=== PATIENT | female | born 1965 | race Caucasian/White ===

== ENCOUNTER 2021-05-12 09:44 | Outpatient (RCR) | payer BC, SELFPAY | END 2021-05-12 19:00 | disposition home or self-care (01) | LOC: PT 09:44 | PROVIDERS: PCP Internal Medicine; Referring Provider Internal Medicine; Visit Provider Internal Medicine | DX: U09.9 Post COVID-19 condition, unspecified (principal); M62.81 Muscle weakness (generalized); B33.0 Epidemic myalgia ==

== ENCOUNTER → 2022-06-26 | Outpatient (CLI) | payer MEDICAID, SELFPAY ==
--- NOTE | 2022-06-26 06:59 | EKG12_ITS ---
Test Reason : MEDICATION CHECK Blood Pressure : / mmHG Vent. Rate : 076 BPM Atrial Rate : 076 BPM P-R Int : 134 ms QRS Dur : 070 ms QT Int : 416 ms P-R-T Axes : 028 -12 003 degrees QTc Int : 468 ms Normal sinus rhythm Low voltage QRS (Precordial Leads) Poor R wave progression Confirmed by REMBERTO HERNANDES, NEREYDA ([id number]), deputy editor in chief KWAKU CHAPMAN ([id number]) on 06/27/2022 10:19:32 AM Referred By: RAE DE LA CRUZ Confirmed By:NEREYDA SR MD
== END | disposition home or self-care (01) ==
PROVIDERS: PCP Internal Medicine
DX: I45.81 Long QT syndrome (principal)
CPT/HCPCS: 93005

== ENCOUNTER → 2022-08-21 | Outpatient (CLI) | payer MEDICAID, SELFPAY ==
[2022-08-21 10:08] LABS: Mucous, Urine 0 SEEN /hpf (<or=2+); Red Blood Cells-Urine 0 SEEN /hpf (0-5)
[2022-08-21 10:53] LABS: Color, Urine Yellow (Yellow); Glucose, Dipstick Normal (Normal); Ketone-Dipstick Negative (Negative); Leukocyte Esterase-Dipstick 500 /ul (Negative); Nitrite-Dipstick Negative (Negative); Occult Blood-Urine Negative /ul (Negative); Protein-Dipstick Negative (Negative); Urine Bilirubin Dipstick Negative (Negative); Urine Clarity Sl. Cloudy (Clear); Urine Urobilinogen Normal (Normal); Urine pH 6.5 (5.0 - 8.0)
[2022-08-21 12:12] LABS: Bacteria 1+ /hpf (None Seen); Squamous Epithelial Cells - UA 0-5 SEEN /hpf (5-10); White Blood Cells 25-50 SEEN /hpf (0-5)
== END | disposition home or self-care (01) ==
LOC: LABSPEC 10:02
PROVIDERS: PCP Internal Medicine; Referring Provider Physician Assistant; Visit Provider Physician Assistant
DX: R39.9 Unspecified symptoms and signs involving the genitourinary system (principal)
CPT/HCPCS: 81001; 87086; 87088

== ENCOUNTER → 2022-10-05 | Outpatient (CLI) | payer MEDICAID, SELFPAY ==
--- NOTE | 2022-10-05 07:17 | US_ITS ---
HISTORY: UTI, HX OF STONES. TECHNIQUE: White scale and color doppler images were obtained of the kidneys. 65 images. COMPARISON: None. FINDINGS: RIGHT KIDNEY: 10 cm in length with a cortical thickness of 11 mm. Echogenic renal pyramids. No hydronephrosis. No gross renal mass demonstrated. LEFT KIDNEY: 10.1 cm in length with a cortical thickness of 11 mm. Echogenic renal pyramids. Mild pelviectasis. No gross renal mass demonstrated. URINARY BLADDER: Partially distended with a wall thickness of 4 mm. US/Kidney and Bladder IMPRESSION: Echogenic renal pyramids, suggesting medullary nephrocalcinosis. Mild left renal pelviectasis. Electronically Signed: Candace Yang MD at 9:04 EDT ,
== END | disposition home or self-care (01) ==
LOC: US 07:17
PROVIDERS: PCP Internal Medicine; Referring Provider Urology; Visit Provider Urology
DX: N39.0 Urinary tract infection, site not specified (principal); Z87.442 Personal history of urinary calculi
CPT/HCPCS: 76770

== ENCOUNTER → 2022-11-07 | Outpatient (CLI) | payer MEDICAID, SELFPAY ==
[2022-11-07 12:26] LABS: Absolute Lymphocyte Count 2.03 X10^3/uL (0.83-4.51); Absolute Neutrophil Count 3.2 X10^3/uL (2.0-7.7); Basophil# 0.06 X10^3/uL; Eosinophil# 0.31 X10^3/uL; Eosinophils% 5.1 % (0-5); Hematocrit 45.2 % (37-47); Hemoglobin 14.6 g/dL (12.0-15.0); Lymphocyte # 2.03 X10^3/ul (0.83-4.51); Lymphocyte % 33.6 % (19-41); Mean Corp Hgb Conc 32.3 g/dL (32-36); Mean Corpuscular Hgb 30.9 pg (27.0-32.0); Mean Corpuscular Volume 95.6 fL (81-99); Mean Platelet Vol. 11.4 fl (6.2-12.0); Monocyte# 0.44 X10^3/uL; Monocyte% 7.3 % (0-10); NRBC Flagged by Analyzer 0 % (0-5); Neutrophil % 52.8 % (47-70); Platelet Count 175 K/mm3 (150-450); RBC Distribution Width CV 13.2 % (11.6-14.6); RBC Distribution Width SD 47.4 fl (35.1-43.9); Red Blood Count 4.73 M/mm3 (4.2-5.4); White Blood Count 6.1 K/mm3 (4.4-11.0)
[2022-11-07 12:56] LABS: ALB/GLOB Ratio 0.8 RATIO (0.9-2.4); AST(SGOT) 44 U/L (15-37); Alanine Aminotransfer ALT/SGPT 47 U/L (13-56); Albumin, Serum 3.3 g/dL (3.2-5.0); Alkaline Phosphatase 123 U/L (45-117); Anion Gap 6 (5-15); BUN 12 mg/dL (7-18); BUN/Creat Ratio 13.1 RATIO (10-20); Chloride 104 mmol/L (98-107); Creatinine, Serum 0.91 mg/dL (0.55-1.02); EST Glomerular Filtration Rate 67 mL/min (>60); Est Glom Filt Rate - Afr Amer 81 mL/min (>60); Glucose 124 mg/dL (74-106); Potassium 3.6 mmol/L (3.5-5.1); Protein, Total 7.3 g/dL (6.4-8.2); Sodium Level 139 mmol/L (136-145); Thyroid Stim Hormone (TSH) 2.14 uIU/mL (0.358-3.74)
== END | disposition home or self-care (01) ==
LOC: BIMLAB 08:15
PROVIDERS: PCP Internal Medicine
DX: F33.2 Major depressive disorder, recurrent severe without psychotic features (principal)
CPT/HCPCS: 36415; 80053; 84443; 85025

== ENCOUNTER → 2023-04-03 | Outpatient (CLI) | payer MEDICAID, SELFPAY ==
[2023-04-03 12:34] LABS: Erythrocyte Sedimentation Rate 12 mm/hr (0-30)
[2023-04-03 12:38] LABS: Hematocrit 47.8 % (37-47); Hemoglobin 15.2 g/dL (12.0-15.0); Mean Corp Hgb Conc 31.8 g/dL (32-36); Mean Corpuscular Hgb 30.5 pg (27.0-32.0); Mean Platelet Vol. 11.1 fl (6.2-12.0); Platelet Count 181 K/mm3 (150-450); RBC Distribution Width CV 13.4 % (11.6-14.6); RBC Distribution Width SD 47.5 fl (35.1-43.9); Red Blood Count 4.98 M/mm3 (4.2-5.4); White Blood Count 8.6 K/mm3 (4.4-11.0)
[2023-04-03 12:59] LABS: Vitamin D,25 Hydroxy 23.3 ng/mL
[2023-04-03 13:15] LABS: ALB/GLOB Ratio 0.8 RATIO (0.9-2.4); AST(SGOT) 38 U/L (15-37); Alanine Aminotransfer ALT/SGPT 51 U/L (13-56); Albumin, Serum 3.4 g/dL (3.2-5.0); Alkaline Phosphatase 103 U/L (45-117); Anion Gap 7 (5-15); BUN 10 mg/dL (7-18); BUN/Creat Ratio 10.6 RATIO (10-20); CRP 9.91 mg/L (0.0-3.0); Calcium,Total 9.2 mg/dL (8.5-10.1); Chloride 101 mmol/L (98-107); Creatinine, Serum 0.95 mg/dL (0.55-1.02); EST Glomerular Filtration Rate 64 mL/min (>60); Est Glom Filt Rate - Afr Amer 78 mL/min (>60); Globulin 4.1 g/dL (2.2-4.2); Glucose 124 mg/dL (74-106); Potassium 3.7 mmol/L (3.5-5.1); Protein, Total 7.5 g/dL (6.4-8.2); Sodium Level 138 mmol/L (136-145); Thyroid Stim Hormone (TSH) 1.16 uIU/mL (0.358-3.74)
[2023-04-03 13:44] LABS: Hemoglobin A1c 6.1 % (3.8-5.6)
[2023-04-04 11:09] LABS: ANTINUCLEAR ANTIBODIES DIRECT Negative (Negative)
== END | disposition home or self-care (01) ==
LOC: BIMLAB 09:11
PROVIDERS: PCP Internal Medicine; Referring Provider Physician Assistant; Visit Provider Physician Assistant
DX: R53.83 Other fatigue (principal); R73.09 Other abnormal glucose
CPT/HCPCS: 36415; 80053; 82306; 83036; 84443; 85027; 85652; 86038; 86140; 86225; 86235

== ENCOUNTER → 2023-06-27 | Outpatient (CLI) | payer OTHER, SELFPAY ==
[2023-06-27 10:06] LABS: Red Blood Cells-Urine 0 SEEN /hpf (0-5)
[2023-06-27 12:40] LABS: Color, Urine Yellow (Yellow); Glucose, Dipstick Normal (Normal); Ketone-Dipstick 5 mg/dl (Negative); Leukocyte Esterase-Dipstick 25 /ul (Negative); Nitrite-Dipstick Negative (Negative); Occult Blood-Urine 25 /ul (Negative); Protein-Dipstick 15 mg/dl (Negative); Specific Gravity, Urine 1.025 (1.002-1.030); Urine Clarity Clear (Clear); Urine Urobilinogen Normal (Normal)
[2023-06-27 12:44] LABS: Urine Bilirubin Dipstick 1 mg/dL (Negative)
[2023-06-27 13:05] LABS: Bacteria 1+ /hpf (None Seen); Mucous, Urine 1+ /hpf (<or=2+); Squamous Epithelial Cells - UA 0-5 SEEN /hpf (5-10); White Blood Cells 0-5 SEEN /hpf (0-5)
== END | disposition home or self-care (01) ==
LOC: LABSPEC 10:00
PROVIDERS: PCP Internal Medicine; Visit Provider Internal Medicine
DX: R30.0 Dysuria (principal)
CPT/HCPCS: 81001

== ENCOUNTER → 2023-07-01 | Outpatient (CLI) | payer OTHER, SELFPAY | END | disposition home or self-care (01) | LOC: LABSPEC 13:47 | PROVIDERS: PCP Internal Medicine; Referring Provider Internal Medicine; Visit Provider Internal Medicine | DX: R30.0 Dysuria (principal) | CPT/HCPCS: 87077; 87086; 87088; 87186 ==

== ENCOUNTER → 2023-08-02 | Outpatient (CLI) | payer OTHER, SELFPAY | END | disposition home or self-care (01) | LOC: LABSPEC 12:18 | PROVIDERS: PCP Internal Medicine; Referring Provider Physician Assistant Surgical; Visit Provider Physician Assistant Surgical | DX: N39.0 Urinary tract infection, site not specified (principal) | CPT/HCPCS: 87077; 87086; 87088; 87186 ==

== ENCOUNTER → 2023-10-09 | Outpatient (CLI) | payer OTHER, SELFPAY | END | disposition home or self-care (01) | LOC: LABSPEC 12:54 | PROVIDERS: PCP Internal Medicine; Referring Provider Physician Assistant; Visit Provider Physician Assistant | DX: N39.0 Urinary tract infection, site not specified (principal) | CPT/HCPCS: 87077; 87086; 87088; 87186 ==

== ENCOUNTER 2023-11-22 07:25 | Day surgery (SDC) | payer MEDICARE, SELFPAY ==
[2023-11-22] VITALS (11 sets, daily range): BP systolic 80–153; BP diastolic 62–94; PULSE 68–96; RESP 16–22; TEMP 36.4–36.9; O2SAT 93–98; BMI 37.2
--- NOTE | 2023-11-22 07:34 | PCM.PRE.AN2 ---
ASA Classification* ASA Classification ASA Classification: 3 Assessment & Plan Anesthesia* Anesthesia Assessment Anesthesia Assessment: Discussed sedation and/or anesthesia options, risks, benefits, and alternatives with patient/parents/legal guardian/POA. Questions invited. The patient/parents/legal guardian/POA seems to understand and agrees to proceed with anesthesia plan. Reviewed the physical assessment, medical history, allergy history and patient home medications list prior to surgery/procedure/anesthetic and documented any changes. Performed airway and anesthesia risk assessments. Anesthesia Type Anesthesia Type: MAC Anesthesia Focused Assessment* Airway Assessment Mouth opens: >3 cm Mallampati Score: II Focused Labs Anesthesia Preop lab: CBC WBC 8.6 K/mm3 (4.4-11.0) 04/03/23 09:10 RBC 4.98 M/mm3 (4.2-5.4) 04/03/23 09:10 Hgb 15.2 g/dL (12.0-15.0) H 04/03/23 09:10 Hct 47.8 % (37-47) H 04/03/23 09:10 Plt Count 181 K/mm3 (150-450) 04/03/23 09:10 CHEMISTRY Potassium 3.7 mmol/L (3.5-5.1) 04/03/23 09:10 Sodium 138 mmol/L (136-145) 04/03/23 09:10 BUN 10 mg/dL (7-18) 04/03/23 09:10 Creatinine 0.95 mg/dL (0.55-1.02) 04/03/23 09:10 Glucose 124 mg/dL (74-106) H 04/03/23 09:10 TSH 1.16 uIU/mL (0.358-3.74) 04/03/23 09:10 COAG Pre-Assessment Diagnosis/Proposed Procedure Planned Operative Procedure(s): CSCOPE OA Anesthesia History 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 When Was Last Pacemaker Check QUESTION #4 FULL TEXT: You/Your Family Experience fever (hyperthermia) with Anesthesia Last Oral Intake Last Oral intake: Last Oral Intake NPO since Meds taken in AM with sips of water? Meds patient instructed to take am of surgery PONV PONV - simulation software engineer: PONV - simulation software engineer Female Yes 11/20/23 10:33 HX of Motion Sickness No 11/20/23 10:33 HX of N/V After Surgery Yes 11/20/23 10:33 Non-Smoker Yes 11/20/23 10:33 Duration of Surgery greater No 11/20/23 10:33 than 60 minutes Number of Risk Factors 3 11/20/23 10:33 PONV Score Moderate Risk 11/20/23 10:33 Height & Weight Height & Weight: Anesthesia: Height & Weight Height 5 ft 1 in 11/06/23 08:59 Respiratory Assessment Respiratory Assessment - simulation software engineer: Respiratory Tract Infection Hx - simulation software engineer Hx Respiratory Tract Infection No 11/20/23 10:33 STOP Sleep Apnea STOP Sleep Apnea - simulation software engineer: STOP Sleep Apnea - simulation software engineer Hx Hypertension Yes: NO MEDS FOR 4 MONTHS 11/20/23 10:33 Hx Sleep Apnea No 11/20/23 10:33 CPAP BIPAP Do you snore loudly (louder No 11/20/23 10:33 than talking or can be heard Do you often feel tired/ Yes 11/20/23 10:33 fatigued/ sleepy during daytime? Has anyone observed you stop No 11/20/23 10:33 breathing during sleep? STOP Results Positive 11/20/23 10:33 QUESTION #5 FULL TEXT : Do you snore loudly (louder than talking or can be heard through closed doors)? 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 Specify any problems Hx of Preganancy in last 3 No 11/20/23 10:33 Months Nurse Filling Out Transfusion DSCHRIBER 11/20/23 10:33 & Questions: Date: 11/20/23 11/20/23 10:33 Time: 10:35 11/20/23 10:33 Patient unable to answer at this time (ie. confused, unrespo /Reproduction History /Reproductive History - simulation software engineer: /Reproductive Hx- simulation software engineer Hx Now No 11/20/23 10:33 Gestational Age (in weeks): EDC: Hx Hx Para Hx Section SAB No 11/20/23 10:33 Active Medications Active Medications: Current Medications Generic Name Dose Route Start Last Admin Trade Name Freq PRN Reason Stop Dose Admin Lactated Ringer's 1,000 mls @ 15 mls/hr 11/22/23 07:45 IV .Q48H CHANCE PFSH Medical History Wears glasses Post-menopausal Depression Anxiety Alcohol use Arthritis Fatty liver Restless legs Syncope History of hiatal hernia Non-smoker Shortness of breath on exertion History of pain when walking History of edema Cardiology follow-up encounter History of echocardiogram History of stress test History of irregular heartbeat Hx of colonic polyps Left ankle pain Urinary tract infection Cognitive impairment Chronic fatigue syndrome Long COVID Venous insufficiency GERD (gastroesophageal reflux disease) Pancreatitis Hypertension History of frequent headaches Anxiety and depression Ankle fracture, left Asthma History of cyst of breast Home Medications ?Medication ?Instructions ?Recorded ?Last Taken ?Type albuterol sulfate 90 mcg/actuation 2 puff inhalation Q4H PRN 07/16/22 Unknown History aerosol inhaler shortness of breath or wheezing venlafaxine 25 mg tablet 25 mg PO BID 07/16/22 Unknown History fluticasone furoate 200 1 inh inhalation DAILY #60 ea 11/26/22 Unknown Rx mcg-vilanterol 25 mcg/dose inhalation powder alprazolam 0.5 mg tablet (Xanax) 0.5 mg PO QHS 12/18/22 Unknown History gabapentin 100 mg capsule 100 mg PO QHS PRN pain (scale 12/18/22 Unknown History score 1-3) trimethoprim 100 mg tablet 100 mg PO QHS 11/06/23 Unknown History pantoprazole 40 mg tablet,delayed 40 mg PO QHS 11/20/23 Unknown History release Allergy/AdvReac Type Severity Reaction Status Date / Time ciprofloxacin (From Cipro) Allergy Severe other Verified 11/20/23 10:31 codeine Allergy Mild hives Verified 11/20/23 10:31 Sulfa (Sulfonamide Allergy Mild Hives Verified 11/20/23 10:31 Antibiotics) Family History Mother Anxiety Asthma Brother Anxiety Father Non-Hodgkin lymphoma Aunt Breast cancer Surgical History Hx of colonoscopy History of cholecystectomy History of cataract extraction History of sacrocolpopexy History of hysterectomy H/O sinus surgery H/O repair of rotator cuff Social History household members: spouse current occupational status: disabled Smoking Status: Never smoker Electronic Cigarette Use: not used alcohol intake: current alcohol intake frequency: holidays/special occasions only Alcohol type: wine substance use type: does not use what type of physical activity do you participate in: none do you feel safe at home: Yes Review of Systems (Anesthesia) ROS Narrative System reviewed and no additional complaints, except as documented.
[2023-11-22] MEDS: Lactated Ringers 1,000 ML 15 ML IV ×2 (07:42→09:52)
--- NOTE | 2023-11-22 08:28 | HP.PCM_ITS ---
HPI - General General Date of Service: 11/22/23 Chief Complaint: Colon cancer screening with history of polyp HPI Narrative ANA TOM, is a 58 F who presents screening colonoscopy. She confirms her preappointment questionnaire that she has not experienced any change in her bowel habits-and particularly denies any notice of blood. She does have a history of multiple prior endoscopies?including one 4 to 5 years ago performed in [place] where she was for the first time found to have a tubular adenoma. She also denies any family history of GI illness to include diverticulitis, inflammatory bowel disease, or colon cancer. Lastly she confirms that her prep was completed successfully and that her output is now clear. [facility] Medical History Wears glasses Post-menopausal Depression Anxiety Alcohol use Arthritis Fatty liver Restless legs Syncope History of hiatal hernia Non-smoker Shortness of breath on exertion History of pain when walking History of edema Cardiology follow-up encounter History of echocardiogram History of stress test History of irregular heartbeat Hx of colonic polyps Left ankle pain Urinary tract infection Cognitive impairment Chronic fatigue syndrome Long COVID Venous insufficiency GERD (gastroesophageal reflux disease) Pancreatitis Hypertension History of frequent headaches Anxiety and depression Ankle fracture, left Asthma History of cyst of breast Home Medications ?Medication ?Instructions ?Recorded ?Last Taken ?Type albuterol sulfate 90 mcg/actuation 2 puff inhalation Q4H PRN 07/16/22 Unknown History aerosol inhaler shortness of breath or wheezing venlafaxine 25 mg tablet 25 mg PO BID 07/16/22 Unknown History fluticasone furoate 200 1 inh inhalation DAILY #60 ea 11/26/22 Unknown Rx mcg-vilanterol 25 mcg/dose inhalation powder alprazolam 0.5 mg tablet (Xanax) 0.5 mg PO QHS 12/18/22 Unknown History gabapentin 100 mg capsule 100 mg PO QHS PRN pain (scale 12/18/22 Unknown History score 1-3) trimethoprim 100 mg tablet 100 mg PO QHS 11/06/23 Unknown History pantoprazole 40 mg tablet,delayed 40 mg PO QHS 11/20/23 Unknown History release Allergy/AdvReac Type Severity Reaction Status Date / Time ciprofloxacin (From Cipro) Allergy Severe other Verified 11/22/23 07:37 codeine Allergy Mild hives Verified 11/22/23 07:37 Sulfa (Sulfonamide Allergy Mild Hives Verified 11/22/23 07:37 Antibiotics) Family History Mother Anxiety Asthma Brother Anxiety Father Non-Hodgkin lymphoma Aunt Breast cancer Surgical History Hx of colonoscopy History of cholecystectomy History of cataract extraction History of sacrocolpopexy History of hysterectomy H/O sinus surgery H/O repair of rotator cuff Social History household members: spouse current occupational status: disabled Smoking Status: Never smoker Electronic Cigarette Use: not used alcohol intake: current alcohol intake frequency: holidays/special occasions only Alcohol type: wine substance use type: does not use what type of physical activity do you participate in: none do you feel safe at home: Yes Past Medical/Surgical History Planned Operation Planned Operative Procedure(s): CSCOPE OA Previous Hospitalizations/Surgeries HX Hospitalizations: No Any Problems With Anesthesia: Yes (N,V) You/Your Family Experience Fever (Hyperthermia) With Anes: No Cholinesterase deficiency: No Cardiovascular Hx Hypertension: Yes (NO MEDS FOR 4 MONTHS) Respiratory Hx Sleep Apnea: No Hx Respiratory Tract Infection/Cold (presently): No Do You Snore Loudly (louder than talking or can be heard): No Do You Often Feel Tired/ Fatigued/ Sleepy Dring Daytime?: Yes Has Anyone Observed You Stop Breathing During Sleep?: No Result (for STOP score): Positive Smoking Status: Never smoker Neurological Does patient have nerve stimulator: No Reproduction : No Miscellaneous Recent Exposure to Contagious Disease: No Allergies ciprofloxacin (From Cipro) Allergy (Severe, Verified 11/22/23 07:37) other QT prolongation codeine Allergy (Mild, Verified 11/22/23 07:37) hives Sulfa (Sulfonamide Antibiotics) Allergy (Mild, Verified 11/22/23 07:37) Hives Discharge Is Pt Admitted From a [facility], or a Senior Living: No After D/C, Where Do you Plan to Go: Return Home Vital Signs Vital Signs Vital Signs: 11/22/23 07:38 11/22/23 07:38 Temperature 98.5 F Temperature Source Temporal Pulse Rate 96 Respiratory Rate 16 Respiratory Pattern Normal Blood Pressure Source Monitor Blood Pressure Position Semi-Fowlers Blood Pressure Location Left Forearm Pulse Ox 98 Oxygen Delivery Method Room Air Weight Weight: 197 lb Body Mass Index (BMI) 37.2 Physical Exam Const alert, oriented x3 and no apparent distress Resp normal respiratory effort GI GI Narrative: Obese, soft, nondistended, nontender to palpation x 4 quadrants Assessment & Plan Assessment/Plan (1) History of adenomatous polyp of colon: PLAN: Patient is a 58-year-old female who presents for colonoscopy after she was found to have a colonic tubular adenoma 4 to 5 years ago during screening colonoscopy. She denies any present complaints other GI habits. Her abdominal exam is benign. She has completed a prep in anticipation of today's procedure. Procedure and post procedure reporting expectations were reviewed and patient denies any further questions. Proceed to endoscopy suite for planned colonoscopy. Surgery Risks - Colonoscopy Risks Include but are not Limited To: Risks include but are not limited to: Bleeding, perforation requiring further surgery, inability to complete colonoscopy requiring barium enema.
--- NOTE | 2023-11-22 08:30 | COLBX_PTH ---
PATIENT: ANA TOM LOC: EN U#:[id number] AGE/SX: 58/F ROOM: RE11/22/[address]: Dr. Antonio Roa MD : 1965 BED: DIS: 11/22/2023 SPEC #: [id number] RECD: 11/22/23 10:50 STATUS: LILIANE CLARK #: [id number] MARINA: 11/22/23 08:[address]: Antonio Roa DEPT: SURGICAL PATHOLOGY RECD BY: Arianna Villafuerte ENTERED: 11/22/23 11:19 SP TYPE: COLON BX OTHR DR: Dr. Court Mcdermott MD Tissues: Rectum, NOS Procedures: Surgery Specimen Level IV HEADER OPERATION: Colonoscopy with biopsy PRE-OP DIAGNOSIS: History of adenomatous polyp of colon TISSUE SUBMITTED: Distal rectal polyp biopsy MICROSCOPIC DIAGNOSIS Distal rectal polyp, biopsy: Hyperplastic polyp. AM/mr 11/25/2023 MICROSCOPIC DESCRIPTION Slides are reviewed. GROSS DESCRIPTION Received in fixative is one container labeled with the patient's name and designated Distal rectal polyp biopsy. The specimen consists of two irregular fragments of light reyes soft tissue that measures 0.4 x 0.2 x 0.1 cm. The specimen is totally submitted in one cassette. NITZA/ 11/22/2023 TC:5 CPT:34176
--- NOTE | 2023-11-22 09:23 | OP.COLON_ITS ---
Patient Name: Jenny Cardoza Procedure Date: 11/22/2023 8:21 AM Date of : 1965 Age: 58 Procedure: Colonoscopy Indications: Surveillance: Personal history of adenomatous polyps on last colonoscopy 5 years ago Providers: Antonio Roa MD Medicines: See the Anesthesia note for documentation of the administered medications Patient Profile: Refer to note in patient chart for documentation of history and physical. Last Colonoscopy: more than 3 years ago. Complications: No immediate complications. Estimated blood loss: Minimal. Procedure: Pre-Anesthesia Assessment: - The heart rate, respiratory rate, oxygen saturations, blood pressure, adequacy of pulmonary ventilation, and response to care were monitored throughout the procedure. After I obtained informed consent, the scope was passed under direct vision. Throughout the procedure, the patient's blood pressure, pulse, and oxygen saturations were monitored continuously. The Colonoscope was introduced through the anus and advanced to the cecum, identified by the appendiceal orifice, ileocecal valve and palpation. The colonoscopy was somewhat difficult due to intractable coughing. Successful completion of the procedure was aided by increasing the dose of sedation medication. The patient tolerated the procedure fairly well. The quality of the bowel preparation was adequate to identify polyps greater than 5 mm in size. Scope In: 8:44:56 AM Scope Withdrawal Time 0 hours 19 minutes 2 seconds Scope Out: 9:12:27 AM Total Procedure Duration Time 0 hours 27 minutes 31 seconds Findings: Hemorrhoids were found on perianal exam. The perianal exam findings include hypertrophied anal papilla(e). Multiple small localized angiodysplastic lesions without bleeding were found in the ascending colon. No biopsies or other specimens were collected for this exam. A 3 mm polyp was found in the proximal rectum. The polyp was sessile. Biopsies were taken with a cold forceps for histology. Estimated blood loss was minimal. Internal hemorrhoids were found during retroflexion. The hemorrhoids were large and Grade II (internal hemorrhoids that prolapse but reduce spontaneously). No biopsies or other specimens were collected for this exam. Impression: - Hemorrhoids found on perianal exam. - Hypertrophied anal papilla(e) found on perianal exam. - Multiple non-bleeding colonic angiodysplastic lesions. No specimens collected. - One 3 mm polyp in the proximal rectum. Biopsied. - Internal hemorrhoids. No specimens collected. Recommendation: - Discharge patient to home (via wheelchair). - High fiber diet today. - No aspirin, ibuprofen, naproxen, or other non-steroidal anti-inflammatory drugs for 2 days after biopsy. - Await pathology results. - Repeat colonoscopy date to be determined after pending pathology results are reviewed for surveillance based on pathology results. - Telephone my office for pathology results in 1 week. Procedure Code(s): --- Professional --- 02584, Colonoscopy, flexible; with biopsy, single or multiple Diagnosis Code(s): --- Professional --- Z86.010, Personal history of colonic polyps K62.89, Other specified diseases of anus and rectum K55.20, Angiodysplasia of colon without hemorrhage D12.8, Benign neoplasm of rectum K64.1, Second degree hemorrhoids CPT copyright 2021 [employer]. All rights reserved. The codes documented in this report are preliminary and upon trailers and motor homes salesperson review may be revised to meet current compliance requirements. Antonio Roa MD 11/22/2023 9:23:18 AM This report has been signed electronically. Number of Addenda: 0 Note Initiated On: 11/22/2023 8:21 AM
--- NOTE | 2023-11-22 09:24 | OP.CCLET_ITS ---
11/22/2023 Court Mcdermott Md Re : Colonoscopy procedure for Jenny Cardoza Dear Baldemar This procedure was performed on Wednesday, November 22, 2023. My impressions and recommendations are as follows: Impressions : - Hemorrhoids found on perianal exam. - Hypertrophied anal papilla(e) found on perianal exam. - Multiple non-bleeding colonic angiodysplastic lesions. No specimens collected. - One 3 mm polyp in the proximal rectum. Biopsied. - Internal hemorrhoids. No specimens collected. Recommendations : - Discharge patient to home (via wheelchair). - High fiber diet today. - No aspirin, ibuprofen, naproxen, or other non-steroidal anti-inflammatory drugs for 2 days after biopsy. - Await pathology results. - Repeat colonoscopy date to be determined after pending pathology results are reviewed for surveillance based on pathology results. - Telephone my office for pathology results in 1 week. My findings are described in the full procedure note, which is enclosed. If I can be of further assistance, please feel free to contact me at Doctor phone number(s): , Work: . Sincerely, Antonio Roa MD 11/22/2023 9:23:18 AM This report has been signed electronically.
--- NOTE | 2023-11-22 09:26 | PCM.POST.ANE ---
Anesthesia: Postop Eval I Current Vital Signs Temperature: 97.5 F Pulse Rate: 92 Blood Pressure: 112/83 Respiratory Rate: 22 Pulse Ox: 97 Oxygen Delivery Method: Nasal Cannula Oxygen Flow Rate (L/min): 4 Assessment Airway patent: Yes Spontaneous unlabored respirations: Yes Mental status: Awake nausea: No Vomiting: No Anesthesia Complication: Yes Anesthesia Complication Comment:: O2 desat d/t profuse coughing Fluid Hydration Crystalloid volume administer (ml): 800 Total IV fluid infused: 800 Progress Note Anesthesia document: Postop Eval 1 completed: Yes
[2023-11-22] MEDS: Ipratropium/Albuterol Sulfate 3 ML AMPUL.NEB INHALATION (10:24)
--- NOTE | 2023-11-22 12:20 | PCM.POSTANE2 ---
Anesthesia Postop Eval I Sum Postop Eval Completion status Anesthesia document: Postop Eval 1 completed: Yes Anesthesia Postop Eval I Summary Anesthesia Postop Eval I Summary: Anesthesia Postop Eval I: Assessment Summary Airway patent Yes 11/22/23 09:27 [email or web address] Spontaneous unlabored Yes 11/22/23 09:27 [email or web address] respirations Mental status Awake 11/22/23 09:27 [email or web address] nausea No 11/22/23 09:27 [email or web address] Vomiting No 11/22/23 09:27 [email or web address] Anesthesia Postop Eval I: Fluid Summary Crystalloid volume administer 800 11/22/23 09:27 [email or web address] (ml) Colloids volume administered ( ml) Blood Product volume administered (ml) Total IV fluid infused 800 11/22/23 09:27 [email or web address] Anesthesia Postop Eval I: Summary Notes Anesthesia Complication Yes 11/22/23 09:27 [email or web address] Anesthesia Complication O2 desat d/t 11/22/23 09:27 [email or web address] Comment: profuse coughing Post-operative progress note Anesthesia: Postop Eval II Evaluation Mental status: Awake and Calm Pain Level: 0 nausea: No Vomiting: No Complications Anesthesia Complication: No
== END 2023-11-22 10:49 | disposition home or self-care (01) ==
LOC: EN 07:25 → AC 07:26
PROVIDERS: PCP Internal Medicine; Referring Provider Internal Medicine; Visit Provider Surgery
PROC: 0DJD8ZZ Inspection of Lower Intestinal Tract, Via Natural or Artificial Opening Endoscopic (ICD-10-PCS; CPT 45378; principal; 2023-11-22 08:25)
DX: Z12.11 Encounter for screening for malignant neoplasm of colon (principal); K64.1 Second degree hemorrhoids; K62.1 Rectal polyp; J45.909 Unspecified asthma, uncomplicated; F41.9 Anxiety disorder, unspecified; F32.A Depression, unspecified; G47.33 Obstructive sleep apnea (adult) (pediatric); K21.9 Gastro-esophageal reflux disease without esophagitis; K62.89 Other specified diseases of anus and rectum; Z79.51 Long term (current) use of inhaled steroids; Z79.899 Other long term (current) drug therapy; Z86.16 Personal history of COVID-19; Z86.010 Personal history of colon polyps
CPT/HCPCS: 45380; 88305; 94640; J7120; J2405

== ENCOUNTER → 2023-11-23 | Outpatient (CLI) | payer MEDICARE, SELFPAY ==
--- NOTE | 2023-11-23 08:14 | MRI_ITS ---
EXAM: MR LEFT LOWER EXTREMITY WITHOUT INTRAVENOUS CONTRAST, TIBIA AND FIBULA CLINICAL INDICATION: pain and swelling -- Attention distal medial tibia TECHNIQUE: Multiplanar and multisequence MR images of the left tibia and fibula without intravenous contrast. COMPARISON: No relevant prior studies available. FINDINGS: Nonspecific subcutaneous edema at the left anteromedial distal lower extremity consider sequela of trauma or potentially cellulitis. No marrow signal alterations. Visualized tendons are intact. No soft tissue masses. MRI/Lower Ext/No Jt/w/o IMPRESSION: Nonspecific subcutaneous edema at the left anteromedial distal lower extremity consider sequela of trauma or potentially cellulitis. Electronically Signed: Sen Mauricio MD at 4:27 EDT ,
== END | disposition home or self-care (01) ==
LOC: MRI 07:55
PROVIDERS: PCP Internal Medicine; Referring Provider Physician Assistant; Visit Provider Physician Assistant
DX: M79.605 Pain in left leg (principal); S80.12XA Contusion of left lower leg, initial encounter; X58.XXXA Exposure to other specified factors, initial encounter; M79.89 Other specified soft tissue disorders
CPT/HCPCS: 73718

== ENCOUNTER → 2023-12-13 | Outpatient (CLI) | payer MEDICARE, SELFPAY ==
--- NOTE | 2023-12-13 10:24 | BI_ITS ---
MAMMOGRAPHY - BILATERAL SCREENING REASON FOR EXAM: Female, 58 years old. Routine annual screening examination. PERTINENT HISTORY: Remote left excisional breast biopsies. TECHNIQUE: Digital bilateral breast trang (3D mammographic acquisition) in the CC and MLO projections. 2-D mediolateral oblique (MLO) and craniocaudad (CC) views of both breasts were obtained. CAD: Full Field Digital Mammography with Computer Added Detection was performed. COMPARISON: Comparison is made with prior outside examination of April 10, 2022. FINDINGS: Breast Composition: The breasts are heterogeneously dense, which may obscure small masses. There are no dominant masses or suspicious calcifications. No other significant abnormalities are identified. There has been no significant change since the prior study. BI/SCRN MAMM (CAD)W/TRANG BILAT IMPRESSION: Stable bilateral screening mammogram. Yearly follow-up mammogram recommended. (A) ASSESSMENT CATEGORY: BIRADS Category 1: Negative. A letter regarding these results will be sent to the patient by the facility within 30 days. Approximately 10% of breast cancers are not detected by mammography. A normal mammogram should not delay biopsy of a clinically suspicious abnormality. [id number] Electronically Signed: Bhavik Matute MD at 7:33 EDT ,
== END | disposition home or self-care (01) ==
LOC: OPBI 10:23
PROVIDERS: PCP Internal Medicine; Referring Provider Physician Assistant; Visit Provider Physician Assistant
DX: Z12.31 Encounter for screening mammogram for malignant neoplasm of breast (principal)
CPT/HCPCS: 77063; 77067

== ENCOUNTER → 2025-02-09 | Outpatient (CLI) | payer MEDICARE, SELFPAY ==
--- NOTE | 2025-02-09 16:46 | BI_ITS ---
EXAM: SCRN MAMM (CAD)W/TRANG BILAT DATE: 02/09/2025 CLINICAL HISTORY: F, Age 60 y/o , SCREENING Aunt with breast cancer. Remote left excisional breast biopsies. TECHNIQUE: Procedure Code: [id number] Modality: MG Procedure: SCRN MAMM (CAD)W/TRANG BILAT COMPARISON: Prior exam(s) dated December 13, 2023.. FINDINGS: TISSUE DENSITY: The breasts are heterogeneously dense, which may obscure small masses. Bilateral Breast Mammographic Findings: No significant masses, calcifications or other abnormalities are identified. No suspicious masses, areas of developing architectural distortion, or suspicious calcifications. There has been no significant interval change. BI/SCRN MAMM (CAD)W/TRANG BILAT IMPRESSION: Stable bilateral screening mammogram. OVERALL FINAL ASSESSMENT BI-RADS 1: NEGATIVE. RECOMMENDATION: Routine annual follow-up in 1 Year Additional Recommendation none A letter with findings and recommendations will be mailed to the patient. Reading Location: [place] [id number]
== END | disposition home or self-care (01) ==
LOC: OPBI 02-10 06:52
PROVIDERS: PCP Nurse Practitioner; Referring Provider Internal Medicine; Visit Provider Internal Medicine
DX: Z12.31 Encounter for screening mammogram for malignant neoplasm of breast (principal)
CPT/HCPCS: 77063; 77067

== ENCOUNTER → 2025-02-22 | Outpatient (CLI) | payer MEDICARE, SELFPAY ==
[2025-02-22 13:04] LABS: Vitamin D,25 Hydroxy 23.6 ng/mL (30-100)
== END | disposition home or self-care (01) ==
LOC: MTLAB 09:55
PROVIDERS: PCP Nurse Practitioner; Referring Provider Nurse Practitioner Family; Visit Provider Nurse Practitioner Family
DX: E55.9 Vitamin D deficiency, unspecified (principal); E11.65 Type 2 diabetes mellitus with hyperglycemia; R53.83 Other fatigue
CPT/HCPCS: 36415; 82306; 84443; 86376

== ENCOUNTER → 2025-03-02 | Outpatient (CLI) | payer MEDICARE, SELFPAY ==
--- NOTE | 2025-03-02 16:17 | BD_ITS ---
PROCEDURE: BD/Dexa Bone Density Study
== END | disposition home or self-care (01) ==
LOC: OPBD 16:13
PROVIDERS: PCP Nurse Practitioner; Referring Provider Nurse Practitioner Family; Visit Provider Nurse Practitioner Family
DX: Z78.0 Asymptomatic menopausal state (principal)
CPT/HCPCS: 77080

== ENCOUNTER 2025-03-05 10:30 | Outpatient (RCR) | payer MEDICARE, SELFPAY ==
--- NOTE | 2025-02-10 09:48 | HP.PTEVAL_ITS ---
Patient's Visit Information Visit Information Visit Information: ANA TOM is a 60 year old F referred to Physical Therapy by ANTHONY Gomez with a diagnosis of OA L kneee. Date of Evaluation: 02/10/25 Physical Therapist: Tesfaye Caba, DPT, OCS, CSCS Visit Plan Frequency: 2x /Week Duration: 4-6 Weeks Plan: 2x/week for 3-6 weeks satarting aquatic therapy and progressing to I pool or land program via silver sneakers. IE HEP QS and HS to end range 10x 2x/day, activitiy modificaiton, LAQ when sitting. Treat in pool with quad and HS strtch, hip and core and knee strength to I, ROM end ranges to L knee. progress to I or HEP. recheck in 3 weeks for land or I. Subjective Subjective: L knee pain for 6 weeks, started hurting wheen knee gave out buckling adn then it hurt. Hurt since. comfortablee at rest. Getting up from chair or in morning is sharp. Went to ortho adn has OA tricompartment. Both knees. Gave injection one week ago and sent for PT, not much better with injection. Improving over time though adn 20% better. Sleep is interrupted, wakes her up throbbing, moving wrong hurts but gets back to sleep well. Getting up to bathroom hurts. Disabled from long covid. Basic ADLs I. Steps to basement and avoids if she can. is doing laundry now for her. 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 Regular ex None; Pain L knee: Pain Intensity (Out of 10): 4 Pain Intensity Range: 0 and 6 Objective Objective: exits chair and table I but hobbles first step on L leg. Walks with slight L antalgia I back to PT. Steps up with L only due to pain in R, descneds reciprocal without pain. Tender anteriorly in knee adn with quad set and patellar grind. - ant drawerr adn valgus varus tests. Max tightness in b quads and HS at -35 90/90 test. C/O pain in quad with streetching but mostly streetching. hip and core strength 3/5 without pain, knee ext strength 3+ L with painand 3+ R, HSC 4- B no pain. reflexes 1/3 B patella and achilles sensation LE WNL to gross light touch. Good b alance. Pt is fearful of pain with moving knee more than painful, -3 to 112 AROM L knee end range pain adn -1 to 116 on R. Balance/Special Test Scores Lower Extremity Functional Score: 25 Goals Goal 1:: I appropriate HEP for strenght, ROM, flex and activity modifcation to manage knee pain Goal Time Frame: 4-6 Weeks Goal 2:: pain in L knee 2/10 at worst adn manageable at 80% better Goal Time Frame: 4-6 Weeks Goal 3:: sleep without waking due to pain Goal Time Frame: 4-6 Weeks Goal 4:: exit chair without hobbling Goal Time Frame: 4-6 Weeks Goal 5:: LEEFS score 50 Goal Time Frame: 4-6 Weeks Rehabilitation Potential Physical Therapy Diagnosis: stiffness and paina nd weakness in core and LE and pain limiting comfortable funciton and gait. Rehabilitation Potential: Fair Anticipated Interventions Patient/Client Instruction: Educate patient on: Condition and Plan of Care For the Purpose of:: To decrease pain, To increase ROM, To improve nutrient delivery to tissue, To improve muscle performance and motor function and To increase tolerance to activity/condition/position Therapeutic Exercise to Include: Strength training, Postural training, Flexibilty training, Gait and locomotor training, Relaxation training, In an aquatic setting, Passive ROM and Active ROM For the Purpose of:: To decrease pain, To increase ROM, To improve nutrient delivery to tissue, To improve muscle performance and motor function, To increase tolerance to activity/condition/position, To improve ability of physical actions for home/community/work/leisure and To improve gait and locomotor functions Text: Thank you for the opportunity to evaluate your patient. For Medicare and Medicare HMO plans, please review the plan of care and approve it. It will need to be FAXED BACK to us at [phone] for Medicare purposes. For Medicare only, by signing this I certify the plan of care. Please let me know if there are questions or concerns regarding this plan of care. Physician Signature: Date:
--- NOTE | 2025-05-21 10:16 | HP.PT.NRP ---
Patient Information Patient Information: ANA TOM was seen in my office for initial evaluation on 02/10/25. The following Plan of Care was established for this patient: POC Established Initial Frequency: 2x /Week Initial Duration: 4-6 Weeks Anticipated Interventions Patient/Client Instruction: Educate patient on: Condition and Plan of Care For the Purpose of:: To decrease pain, To increase ROM, To improve nutrient delivery to tissue, To improve muscle performance and motor function and To increase tolerance to activity/condition/position Therapeutic Exercise to Include: Strength training, Postural training, Flexibilty training, Gait and locomotor training, Relaxation training, In an aquatic setting, Passive ROM and Active ROM For the Purpose of:: To decrease pain, To increase ROM, To improve nutrient delivery to tissue, To improve muscle performance and motor function, To increase tolerance to activity/condition/position, To improve ability of physical actions for home/community/work/leisure and To improve gait and locomotor functions Last Seen Last Seen: This patient was last seen in our office 02/26/25. Pertinent comments regarding their Physical therapy will appear below: Pt seen 5 visits of POC in [place] but the next couplke weree cancelld. She was to reschdule after hr vacation but did not schedule or attend any further. iw ill discontinue at this time due to nonattendance. At this point I will be discontinuing this patient from physical therapy. I would be happy to see this patient again in the future if found appropriate by the physician. Thank you! Tesfaye Caba, DPT, OCS, CSCS Balance/Gait/Functional tests Balance/Special Test Scores Lower Extremity Functional Score: 25
== END 2025-03-05 19:00 | disposition home or self-care (01) ==
LOC: PT 10:30
PROVIDERS: PCP Nurse Practitioner; Referring Provider Nurse Practitioner Family; Visit Provider Nurse Practitioner Family
DX: S83.92XD Sprain of unspecified site of left knee, subsequent encounter (principal); M17.12 Unilateral primary osteoarthritis, left knee
CPT/HCPCS: 97113; 97161

== ENCOUNTER 2025-03-19 08:16 | Outpatient (CLI) | payer MEDICARE, SELFPAY ==
[2025-03-19 08:23] VITALS: BP 146/71; PULSE 73; RESP 16; TEMP 35.9; O2SAT 97
[2025-03-19] MEDS: 0.9% NaCl Peripheral Flush Adult IV (08:27)
[2025-03-19] MEDS: 0.9% NaCl IVPB Med Flush (100mL) 15 ML IV (08:33)
[2025-03-19 09:07] VITALS: BP 135/79; PULSE 62; RESP 16; TEMP 35.6
== END 2025-03-19 23:59 | disposition home or self-care (01) ==
LOC: MEDOUTP 08:16
PROVIDERS: PCP Nurse Practitioner; Referring Provider Nurse Practitioner Family; Visit Provider Nurse Practitioner Family
DX: M81.0 Age-related osteoporosis without current pathological fracture (principal)
CPT/HCPCS: 96365; A4216; J3489

== ENCOUNTER → 2025-03-19 | Outpatient (CLI) | payer MEDICARE, SELFPAY ==
--- NOTE | 2025-03-19 10:19 | MRI_ITS ---
PROCEDURE: LOWER EXT JOINT ONLY (ROUTINE) 03/19/2025 REASON FOR EXAM: INTERNAL DERANGEMENT KNEE TECHNIQUE: Procedure Code: MRILEJ Modality: MR Procedure: MRI of the left knee without contrast. Multiplanar and multisequence images were obtained without IV contrast administration. COMPARISON: COMPARISON : Left knee series of 01/15/2025. FINDINGS: No significant joint effusion is seen. No Del Real's or popliteal cyst is noted. No acute osseous signal change is seen. No cruciate or collateral ligament tear is seen. Thickening and internal increased signal of the distal patellar tendon is seen, consistent with prior partial tear or residual of chronic tendinosis. [id number] tricompartmental degenerative changes are seen, with moderate to moderately severe articular cartilage thinning of the patellofemoral compartment noted, most prominent at the lateral facet of the patella. [id number] severe irregular articular cartilage thinning is seen in the medial compartment, most prominent at the articular aspect of the medial femoral condyle. The lateral compartment demonstrates [id number] articular cartilage thinning. No meniscal tear is clearly evident. MRI/Lower Ext Joint Only (Routine) IMPRESSION: 1. Tricompartmental degenerative changes as described. 2. Thickening and internal increased signal of the distal patellar tendon is se en, consistent with prior partial tear or residual of chronic tendinosis. Reading Location: [id number]
== END | disposition home or self-care (01) ==
LOC: MRI 10:17
PROVIDERS: PCP Nurse Practitioner; Referring Provider Nurse Practitioner Family; Visit Provider Nurse Practitioner Family
DX: M23.92 Unspecified internal derangement of left knee (principal)
CPT/HCPCS: 73721